=== PATIENT | male | born 1940 | race Two or more races ===

== ENCOUNTER 2023-09-15 08:00 | Inpatient (IN) | payer MEDICARE, BC ==
[~2023-09-15] VITALS: Ht 182.9 cm; Wt 93.9 kg
[2023-09-15] MEDS ORDERED: CEFTRIAXONE 1GM BAG (ER ONLY) 50 ML IV ONE (08:30)
[2023-09-15] MEDS: LEVOFLOXACIN 750 MG /D5W 150ML 150 ML IV ONE (08:30)
[2023-09-15] MEDS: ACETAMINOPHEN ES 500 MG TABLET PO ONE (08:30)
[2023-09-15] MEDS: IV NS 0.9% 1,000 ML BAG IV ONE (08:30)
[2023-09-15] MEDS ORDERED: AZITHROMYCIN 500 MG in IV D5W 250 ML IV ONE (08:30)
[2023-09-15] MEDS ORDERED: LEVOFLOXACIN 750 MG /D5W 150ML 150 ML IV ONE (08:31)
[2023-09-15 08:33] LABS: BASOPHILS % (AUTO) 0.2 % (0.0-2.0); HEMATOCRIT 37 % (39-51); HEMOGLOBIN 12.1 g/dL (13.5-17.5); LYMPHOCYTES # (AUTO) 0.7 K/uL (0.8-4.8); LYMPHOCYTES % (AUTO) 5.1 % (20.0-44.0); MEAN CORPUSCULAR HEMOGLOBIN 32 PG (26.0-33.0); MEAN CORPUSCULAR HGB CONC 33 g/dl (31.0-36.0); MEAN CORPUSCULAR VOLUME 97 fL (80-96); MONOCYTES # (AUTO) 0.3 K/uL (0.1-1.30); MONOCYTES % (AUTO) 2.5 % (2.0-12.0); NEUTROPHILS # (AUTO) 12.9 K/uL (1.8-8.9); NEUTROPHILS % (AUTO) 92.2 % (43.0-81.0); PLATELET COUNT (AUTO) 69 K/uL (150-450); RED BLOOD CELL COUNT(AUTO) 3.78 MIL/uL (4.5-6.0); RED CELL DISTRIBUTION WIDTH 16.1 % (11.5-15.0)
[2023-09-15 08:41] LABS: CALCIUM, SERUM 9.6 mg/dL (8.5-10.1); CARBON DIOXIDE 25 mmol/L (21-32); CHLORIDE 99 mmol/L (98-107); CREATININE 1.6 mg/dL (0.6-1.3); GLUCOSE 113 mg/dL (74-106); POTASSIUM 3.5 mmol/L (3.5-5.1); SODIUM SERUM 134 mmol/L (136-145); UREA NITROGEN, BLOOD 24 mg/dL (7-18)
[2023-09-15] MEDS ORDERED: ACETAMINOPHEN ES 500 MG TABLET ONE (08:41)
[2023-09-15 08:43] LABS: INR 1.03 (0.91-1.10); PROTHROMBIN TIME 10.9 SECS (9.2-11.1)
[2023-09-15 08:47] LABS: ALANINE AMINOTRANSFERASE 19 U/L (12-78); ALBUMIN 2.6 g/dL (3.4-5.0); ALKALINE PHOSPHATASE 66 U/L (46-116); ASPARTATE AMINOTRANSFERASE 29 U/L (15-37); BILIRUBIN,DIRECT 0.8 mg/dL (0.0-0.2)
[2023-09-15 08:49] LABS: LACTIC ACID 2.1 mmol/L (0.4-2.0)
[2023-09-15 08:51] LABS: BASOPHILS % (MANUAL) 0 % (0.0-2.0); EOSINOPHILS % (MANUAL) 0 % (0-4); LYMPHOCYTES % (MANUAL) 7 % (16-48); MONOCYTES % (MANUAL) 4 % (0-11.0); NEUTROPHILS % (MANUAL) 89 (42-76); PLATELET ESTIMATE DECREASED
[2023-09-15] MEDS ORDERED: ACETAMINOPHEN 325 MG TABLET PO PRN (09:30)
[2023-09-15] MEDS ORDERED: ONDANSETRON HCL/PF 4 MG/2 ML VIAL IVP PRN (09:30)
[2023-09-15] MEDS ORDERED: Z GUARD REMEDY 4 OZ OINT TP PRN (09:30)
[2023-09-15] MEDS ORDERED: ENOXAPARIN SODIUM 40 MG/0.4 ML DISP.SYRIN SQ SCH (09:30)
[2023-09-15] MEDS ORDERED: LOSA100T31 PO (09:38)
[2023-09-15] MEDS ORDERED: DOXY50CA PO (09:38)
[2023-09-15] MEDS ORDERED: TRIA15CR4 TP (09:38)
[2023-09-15] MEDS ORDERED: FURO-145 PO (09:38)
[2023-09-15] MEDS ORDERED: MONT10TA22 PO (09:38)
[2023-09-15] MEDS ORDERED: PANT40TA2 PO (09:38)
[2023-09-15] MEDS ORDERED: DAPA5TAB PO (09:38)
[2023-09-15] MEDS ORDERED: ASCO-352 PO (09:38)
[2023-09-15] MEDS ORDERED: AMLO2.5T4 PO (09:38)
[2023-09-15] MEDS ORDERED: FLUO30CR50 TP (09:38)
[2023-09-15] MEDS ORDERED: APIX2.5T PO (09:38)
[2023-09-15] MEDS ORDERED: ASPI-1169 PO (09:38)
[2023-09-15] MEDS ORDERED: AMIO200T5 PO (09:38)
[2023-09-15] MEDS ORDERED: TIOT18CA3 IH (09:38)
[2023-09-15] MEDS ORDERED: FAMO40TA7 PO (09:38)
[2023-09-15] MEDS ORDERED: CARV6.25 PO (09:38)
[2023-09-15] MEDS ORDERED: ALLO300T2 PO (09:38)
[2023-09-15] MEDS ORDERED: KETO15CR2 TP (09:38)
[2023-09-15] MEDS ORDERED: ATOR80TA PO (09:38)
[2023-09-15] MEDS ORDERED: CYAN-51 PO (09:38)
[2023-09-15] MEDS ORDERED: CHOL100062 PO (09:38)
[2023-09-15] MEDS ORDERED: VITA-354 PO (09:38)
[2023-09-15] MEDS: IV NS 0.9% 1,000 ML IV PRN (10:38)
[2023-09-15 12:00] VITALS: BP 130/64; TEMP 98.6; O2SAT 95
[2023-09-15 15:16] LABS: CREATININE, URINE 87.2 MG/DL (30.0-125.0); URINE TOTAL PROTEIN 65.6 mg/dL (0-11.9)
[2023-09-15 15:47] LABS: APPEARANCE,URINE CLEAR (CLEAR); BILIRUBIN,URINE NEGATIVE (NEGATIVE); BLOOD, URINE 1+ Ery/uL (NEGATIVE); COLOR,URINE YELLOW (YELLOW); KETONES,URINE NEGATIVE (NEGATIVE); LEUKOCYTE ESTERASE ,URINE NEGATIVE (NEGATIVE); NITRITE, URINE NEGATIVE (NEGATIVE); PROTEIN,URINE 1+ mg/dl (NEGATIVE); UGLUCOSE 1+ mg/dL (NEGATIVE)
[2023-09-15 16:00] VITALS: BP 129/53; TEMP 98.6; O2SAT 95
[2023-09-15 16:40] LABS: ADD URINE CULTURE NO; WBC,URINE 0-2 /HPF (0-3)
[2023-09-15 16:41] LABS: BACTERIA,URINE RARE /HPF (None Seen)
[2023-09-15 17:17] LABS: EOSINOPHIL,URINE None Seen
[2023-09-15 20:00] VITALS: BP 110/56; TEMP 98.4; O2SAT 98
[2023-09-15] MEDS ORDERED: DOXYCYCLINE HYCLATE 50 MG CAPSULE PO PRN (20:00)
[2023-09-15] MEDS ORDERED: KETOCONAZOLE 2% CREAM 15 GM TUBE TP PRN (20:00)
[2023-09-15] MEDS ORDERED: TRIAMCINOLONE ACETONIDE 0.1% CR 15 GM TUBE TP PRN (20:00)
[2023-09-15] MEDS: ASPIRIN 81 MG TAB.CHEW PO SCH (20:00)
[2023-09-16] VITALS (14 sets, daily range): BP systolic 118–129; BP diastolic 51–65; TEMP 97.7–99.1; O2SAT 95–98
[2023-09-16] MEDS: IPRATROPIUM NEB FS 0.5 MG/2.5 ML AMPUL.NEB NEB SCH (03:14)
[2023-09-16 07:20] LABS: BASOPHILS % (AUTO) 0.1 % (0.0-2.0); HEMATOCRIT 32 % (39-51); HEMOGLOBIN 10.6 g/dL (13.5-17.5); LYMPHOCYTES # (AUTO) 0.8 K/uL (0.8-4.8); LYMPHOCYTES % (AUTO) 8.5 % (20.0-44.0); MEAN CORPUSCULAR HEMOGLOBIN 32 PG (26.0-33.0); MEAN CORPUSCULAR HGB CONC 33 g/dl (31.0-36.0); MEAN CORPUSCULAR VOLUME 98 fL (80-96); MONOCYTES # (AUTO) 0.4 K/uL (0.1-1.30); MONOCYTES % (AUTO) 3.8 % (2.0-12.0); NEUTROPHILS # (AUTO) 8.8 K/uL (1.8-8.9); NEUTROPHILS % (AUTO) 87.6 % (43.0-81.0); PLATELET COUNT (AUTO) 62 K/uL (150-450); RED BLOOD CELL COUNT(AUTO) 3.29 MIL/uL (4.5-6.0); RED CELL DISTRIBUTION WIDTH 16.3 % (11.5-15.0)
[2023-09-16 07:32] LABS: ALANINE AMINOTRANSFERASE 15 U/L (12-78); ALBUMIN 1.9 g/dL (3.4-5.0); ALKALINE PHOSPHATASE 58 U/L (46-116); ASPARTATE AMINOTRANSFERASE 19 U/L (15-37); BILIRUBIN,TOTAL 1.5 mg/dL (0.2-1.0); CALCIUM, SERUM 9.2 mg/dL (8.5-10.1); CARBON DIOXIDE 20 mmol/L (21-32); CHLORIDE 104 mmol/L (98-107); CREATININE 1.1 mg/dL (0.6-1.3); GLUCOSE 94 mg/dL (74-106); MAGNESIUM 2.3 mg/dL (1.8-2.4); PHOSPHORUS 2.7 mg/dL (2.5-4.9); POTASSIUM 3.8 mmol/L (3.5-5.1); SODIUM SERUM 136 mmol/L (136-145); TOTAL PROTEIN, SERUM 6.2 g/dL (6.4-8.2); UREA NITROGEN, BLOOD 20 mg/dL (7-18)
[2023-09-16 07:42] LABS: CREATINE KINASE, TOTAL 239 U/L (39-308)
[2023-09-16] MEDS: ALBUTEROL FS 2.5 MG/3 ML VIAL.NEB NEB SCH (07:43)
[2023-09-16] MEDS: PANTOPRAZOLE 40 MG TABLET.DR PO SCH (08:16)
[2023-09-16] MEDS: MEROPENEM 1 G in IV NS 0.9% 100 ML IV SCH (08:20)
[2023-09-16] MEDS: AMLODIPINE BESYLATE 2.5 MG TABLET PO SCH (08:20)
[2023-09-16] MEDS: ASCORBIC ACID 500 MG TABLET PO SCH (08:20)
[2023-09-16] MEDS: ATORVASTATIN 40 MG TABLET PO SCH (08:21)
[2023-09-16] MEDS: CHOLECALCIFEROL 1,000 UNIT TABLET (VIT D3) PO SCH (08:21)
[2023-09-16] MEDS: CYANOCOBALAMIN 500 MCG TABLET PO SCH (08:21)
[2023-09-16] MEDS: LOSARTAN POTASSIUM 50 MG TABLET PO SCH (08:21)
[2023-09-16] MEDS: MONTELUKAST SODIUM (10MG) 10 MG TABLET PO SCH (08:21)
[2023-09-16] MEDS: VITAMIN E 400 UNIT CAPSULE PO SCH (08:21)
[2023-09-16] MEDS: CARVEDILOL 6.25 MG TABLET PO SCH (08:21)
[2023-09-16] MEDS: DOXYCYCLINE HYCLATE (100 MG) 100 MG TABLET PO SCH (08:22)
[2023-09-16] MEDS: ALLOPURINOL 100 MG TABLET PO SCH (08:22)
[2023-09-16] MEDS: FUROSEMIDE 20 MG TABLET PO SCH (08:22)
[2023-09-16] MEDS: APIXABAN 2.5 MG TABLET PO SCH (08:25)
[2023-09-16] MEDS ORDERED: MEROPENEM 500 MG in IV NS 0.9% 50 ML IV SCH (09:00)
[2023-09-16] MEDS ORDERED: PANTOPRAZOLE 40 MG TABLET.DR PO SCH (09:00)
[2023-09-16] MEDS ORDERED: FAMOTIDINE (20 MG) 20 MG TABLET PO SCH (09:00)
[2023-09-16] MEDS: POTASSIUM CHLORIDE 20 MEQ TAB.PRT.SR PO SCH (09:19)
[2023-09-16] MEDS: DAPAGLIFLOZIN PROPANEDIOL 5 MG TABLET PO SCH (09:19)
[2023-09-16] MEDS: FUROSEMIDE 40 MG/4 ML VIAL IV SCH (09:25)
[2023-09-16 12:14] LABS: ANISOCYTOSIS 1+; BASOPHILS % (MANUAL) 0 % (0.0-2.0); EOSINOPHILS % (MANUAL) 0 % (0-4); LYMPHOCYTES % (MANUAL) 10 % (16-48); MONOCYTES % (MANUAL) 5 % (0-11.0); NEUTROPHILS % (MANUAL) 85 (42-76); PLATELET ESTIMATE DECREASED
[2023-09-16] MEDS: POLYETHYLENE GLYCOL 3350 17 GM POWD.PACK PO SCH (21:24)
[2023-09-16] MEDS: TAMSULOSIN 0.4 MG CAP.SR.24H PO SCH (21:59)
[2023-09-17] VITALS (13 sets, daily range): BP systolic 115–131; BP diastolic 54–66; TEMP 98.3–98.7; O2SAT 93–99
[2023-09-17 07:18] LABS: BASOPHILS % (AUTO) 0.1 % (0.0-2.0); EOSINOPHILS % (AUTO) 0.2 % (0.0-6.0); HEMATOCRIT 31 % (39-51); HEMOGLOBIN 10.5 g/dL (13.5-17.5); LYMPHOCYTES # (AUTO) 0.8 K/uL (0.8-4.8); LYMPHOCYTES % (AUTO) 9.9 % (20.0-44.0); MEAN CORPUSCULAR HEMOGLOBIN 33 PG (26.0-33.0); MEAN CORPUSCULAR HGB CONC 34 g/dl (31.0-36.0); MEAN CORPUSCULAR VOLUME 97 fL (80-96); MONOCYTES # (AUTO) 0.4 K/uL (0.1-1.30); MONOCYTES % (AUTO) 5.2 % (2.0-12.0); NEUTROPHILS # (AUTO) 6.6 K/uL (1.8-8.9); NEUTROPHILS % (AUTO) 84.6 % (43.0-81.0); PLATELET COUNT (AUTO) 70 K/uL (150-450); RED BLOOD CELL COUNT(AUTO) 3.19 MIL/uL (4.5-6.0); RED CELL DISTRIBUTION WIDTH 15.7 % (11.5-15.0); WHITE BLOOD COUNT (AUTO) 7.8 K/uL (4.3-11.0)
[2023-09-17 07:43] LABS: ALANINE AMINOTRANSFERASE 31 U/L (12-78); ALBUMIN 1.7 g/dL (3.4-5.0); ALKALINE PHOSPHATASE 61 U/L (46-116); ASPARTATE AMINOTRANSFERASE 45 U/L (15-37); BILIRUBIN,TOTAL 1.4 mg/dL (0.2-1.0); CARBON DIOXIDE 24 mmol/L (21-32); CHLORIDE 103 mmol/L (98-107); CREATININE 1.3 mg/dL (0.6-1.3); GLUCOSE 117 mg/dL (74-106); MAGNESIUM 2.3 mg/dL (1.8-2.4); PHOSPHORUS 2.7 mg/dL (2.5-4.9); POTASSIUM 3.5 mmol/L (3.5-5.1); SODIUM SERUM 136 mmol/L (136-145); UREA NITROGEN, BLOOD 28 mg/dL (7-18)
[2023-09-17 08:09] LABS: PTH, INTACT 52 pg/mL (15-65)
[2023-09-17 09:08] LABS: ANISOCYTOSIS 1+; BASOPHILS % (MANUAL) 0 % (0.0-2.0); EOSINOPHILS % (MANUAL) 0 % (0-4); LYMPHOCYTES % (MANUAL) 8 % (16-48); MONOCYTES % (MANUAL) 5 % (0-11.0); NEUTROPHILS % (MANUAL) 87 (42-76); OVALOCYTES 1+; PLATELET ESTIMATE DECREASED
[2023-09-17] MEDS: AMIODARONE HCL 200 MG TABLET PO SCH (09:28)
[2023-09-17] MEDS ORDERED: LEVOFLOXACIN 750 MG /D5W 150ML 750 MG in PREMIX 1 EA IV SCH (10:00)
[2023-09-17 10:15] LABS: IRON, SERUM 12 ug/dl (50-175); TOTAL IRON BINDING CAPACITY 171 ug/dl (250-450)
[2023-09-17 10:36] LABS: CHOLESTEROL 105 mg/dL (<200); HDL CHOLESTEROL 41 mg/dL (40-60); LDL 53 mg/dL (0-99); TRIGLYCERIDES 72 mg/dL (30-150)
[2023-09-17 11:13] LABS: FERRITIN 444 ng/mL (8-388)
[2023-09-17] MEDS: ATORVASTATIN 10 MG TABLET PO SCH (11:17)
[2023-09-17] MEDS: BISACODYL SUPP (10 MG) 10 MG/SUPP.RECT SUPP.RECT RC PRN (20:38)
[2023-09-18] VITALS (14 sets, daily range): BP systolic 103–128; BP diastolic 53–64; TEMP 97.7–98.8; O2SAT 93–99
[2023-09-18] MEDS: FUROSEMIDE 40 MG/4 ML VIAL IV SCH (10:46)
[2023-09-18] MEDS: POTASSIUM CHLORIDE 20 MEQ TAB.PRT.SR PO SCH (10:46)
[2023-09-18] MEDS: methylPREDNISolone SOD SUCC 40 MG/ML VIAL IV SCH (11:57)
[2023-09-18] MEDS: SOD FERRIC GLUC 125 MG in IV NS 0.9% 100 ML IV SCH (13:56)
[2023-09-18] MEDS: IPRATROPIUM NEB FS 0.5 MG/2.5 ML AMPUL.NEB NEB SCH (14:41)
[2023-09-18] MEDS: LEVALBUTEROL HCL NEB 1.25 MG/0.5 ML VIAL.NEB NEB SCH (14:41)
[2023-09-18] MEDS: NYSTATIN (PYXIS) 500,000 UNIT/5 ML ORAL.SUSP PO SCH (19:17)
[2023-09-18] MEDS: VANCOMYCIN 1 GM in IV D5W 250ml IV ONE ×2 (19:17→19:39)
[2023-09-18] MEDS: CHLORHEXIDINE GLUCONATE 15 ML UDC MM SCH (19:17)
[2023-09-19] VITALS (10 sets, daily range): BP systolic 100–114; BP diastolic 52–65; TEMP 97.7–98.8; O2SAT 95–100
[2023-09-19 08:26] LABS: BASOPHILS % (AUTO) 0.1 % (0.0-2.0); HEMATOCRIT 32 % (39-51); HEMOGLOBIN 10.8 g/dL (13.5-17.5); LYMPHOCYTES # (AUTO) 0.6 K/uL (0.8-4.8); LYMPHOCYTES % (AUTO) 10.1 % (20.0-44.0); MEAN CORPUSCULAR HEMOGLOBIN 32 PG (26.0-33.0); MEAN CORPUSCULAR HGB CONC 33 g/dl (31.0-36.0); MEAN CORPUSCULAR VOLUME 96 fL (80-96); MONOCYTES # (AUTO) 0.3 K/uL (0.1-1.30); MONOCYTES % (AUTO) 5.3 % (2.0-12.0); NEUTROPHILS # (AUTO) 5.2 K/uL (1.8-8.9); NEUTROPHILS % (AUTO) 84.5 % (43.0-81.0); PLATELET COUNT (AUTO) 112 K/uL (150-450); RED BLOOD CELL COUNT(AUTO) 3.37 MIL/uL (4.5-6.0); RED CELL DISTRIBUTION WIDTH 15.6 % (11.5-15.0); WHITE BLOOD COUNT (AUTO) 6.2 K/uL (4.3-11.0)
[2023-09-19 08:35] LABS: ALANINE AMINOTRANSFERASE 116 U/L (12-78); ALBUMIN 1.6 g/dL (3.4-5.0); ALKALINE PHOSPHATASE 111 U/L (46-116); ASPARTATE AMINOTRANSFERASE 165 U/L (15-37); CALCIUM, SERUM 9.7 mg/dL (8.5-10.1); CARBON DIOXIDE 28 mmol/L (21-32); CHLORIDE 97 mmol/L (98-107); CREATININE 1.1 mg/dL (0.6-1.3); GLUCOSE 115 mg/dL (74-106); MAGNESIUM 2.6 mg/dL (1.8-2.4); POTASSIUM 3.8 mmol/L (3.5-5.1); SODIUM SERUM 132 mmol/L (136-145); TOTAL PROTEIN, SERUM 6.7 g/dL (6.4-8.2); UREA NITROGEN, BLOOD 30 mg/dL (7-18)
[2023-09-19] MEDS: VANCOMYCIN 750 MG in IV D5W 250 ML IV SCH (08:40)
[2023-09-19 12:10] LABS: *SPE A/G RATIO 0.8 (0.7-1.7); *SPE ALBUMIN 2.3 g/dL (2.9-4.4); *SPE ALPHA-1-GLOBULIN 0.5 g/dL (0.0-0.4); *SPE ALPHA-2-GLOBULIN 0.9 g/dL (0.4-1.0); *SPE BETA GLOBULIN 0.7 g/dL (0.7-1.3); *SPE M-SPIKE Not Observed g/dL (Not Observed); *SPE PROTEIN TOTAL 5.3 g/dL (6.0-8.5); *SPEGAMMA GLOBULIN 0.9 g/dL (0.4-1.8)
[2023-09-19] MEDS: IPRATROPIUM NEB FS 0.5 MG/2.5 ML AMPUL.NEB NEB SCH (13:30)
[2023-09-20] VITALS: BP 119/60; TEMP 98.1; O2SAT 97
[2023-09-20 04:00] VITALS: BP 110/62; TEMP 98; O2SAT 97
[2023-09-20 07:24] LABS: CALCIUM, SERUM 9.2 mg/dL (8.5-10.1); CREATININE 1.1 mg/dL (0.6-1.3); POTASSIUM 3.6 mmol/L (3.5-5.1)
[2023-09-20 07:43] VITALS: O2SAT 97
[2023-09-20 08:00] VITALS: BP 131/68; TEMP 97.7; O2SAT 99
[2023-09-20] MEDS ORDERED: TIOTROPIUM BROMIDE 6 CAP/BOX CAP.W.DEV IH SCH (09:00)
[2023-09-20 12:00] VITALS: BP 117/62; TEMP 98.1; O2SAT 98
[2023-09-20] MEDS ORDERED: LEVO500T90 PO (13:21)
[2023-09-20] MEDS ORDERED: FERR-68 PO (13:21)
[2023-09-20] MEDS ORDERED: PRED20TA PO (13:21)
== END 2023-09-20 17:07 | disposition home or self-care (01) | DRG 871 ==
LOC: ER 08:03 → TELE-TD 09:51 → TELE1 10:08 → MEDSG1 09-20 11:37
PROVIDERS: ADMIT Internal Medicine
DX: A41.9 Sepsis, unspecified organism (principal); I21.A1 Myocardial infarction type 2; J15.9 Unspecified bacterial pneumonia; J96.01 Acute respiratory failure with hypoxia; N17.0 Acute kidney failure with tubular necrosis; J69.0 Pneumonitis due to inhalation of food and vomit; J44.0 Chronic obstructive pulmonary disease with (acute) lower respiratory infection; J44.1 Chronic obstructive pulmonary disease with (acute) exacerbation; B37.0 Candidal stomatitis; E87.1 Hypo-osmolality and hyponatremia; Z20.822 Contact with and (suspected) exposure to COVID-19; Z95.0 Presence of cardiac pacemaker; Z95.5 Presence of coronary angioplasty implant and graft; I25.10 Atherosclerotic heart disease of native coronary artery without angina pectoris; E78.00 Pure hypercholesterolemia, unspecified; I11.0 Hypertensive heart disease with heart failure; Z88.0 Allergy status to penicillin; Z91.040 Latex allergy status; M89.8X9 Other specified disorders of bone, unspecified site; Z79.899 Other long term (current) drug therapy; I48.0 Paroxysmal atrial fibrillation; Z79.51 Long term (current) use of inhaled steroids; Z79.01 Long term (current) use of anticoagulants; Z79.82 Long term (current) use of aspirin; D69.6 Thrombocytopenia, unspecified; R33.9 Retention of urine, unspecified; Z87.891 Personal history of nicotine dependence; D64.9 Anemia, unspecified; I70.0 Atherosclerosis of aorta; I50.9 Heart failure, unspecified
CPT/HCPCS: 36415; 36600; 71045-TC; 71250-TC; 76770-TC; 80048-TC; 80053-TC; 80061-TC; 80076-TC; 80202-TC; 81001; 82550-TC; 82570-TC; 82728-TC; 82803-TC; 83540-TC; 83605-TC; 83735-TC; 83970; 84100-TC; 84155; 84165; 84300-TC; 84484-TC; 85025-TC; 85730-TC; 87040-TC; 87081-TC; 87086-TC; 93307-TC; 94799-TC; A4223; G0378; J1940; J1956; J2185; J2916; J2919; J3370; J3371; J7030; J7050; J7060